=== PATIENT | female | born 1970 ===

== ENCOUNTER 2018-03-05 06:12 | Day surgery (SDC) | payer MEDICARE ==
[2018-03-03 11:38] VITALS: BMI 36.6
[2018-03-05 07:02] VITALS: TEMP 97.9
[2018-03-05 07:02] LABS: BASO # 0.1 K/uL (0.0-0.2); BASO % 0.7 % (0.0-2.0); EOS # 0.5 K/uL (0.0-0.7); EOS % 3.5 % (0.0-4.0); HEMOGLOBIN 13.4 g/dL (11.0-16.0); LYMPH # 4.3 K/uL (1.0-4.3); LYMPH % 32.8 % (20.0-40.0); MEAN CELL VOLUME 87.4 fL (81.0-99.0); MEAN CORPUSCULAR HEMOGLOBIN 29.5 pg (27.0-31.0); MEAN CORPUSCULAR HGB CONC 33.8 g/dL (33.0-37.0); MEAN PLATELET VOLUME 7.7 fL (7.2-11.7); MONO # 1.1 K/uL (0.0-0.8); NEUT # 7.3 K/uL (1.8-7.0); RBC 4.55 Mil/uL (3.80-5.20); RED CELL DISTRIBUTION WIDTH 13.7 % (11.5-14.5); WHITE BLOOD COUNT 13.2 K/uL (4.8-10.8)
[2018-03-05] MEDS ORDERED: Propofol 10 mg/ml Inj (20 ML) ONE (08:03)
[2018-03-05] MEDS ORDERED: Midazolam 2 MG/2 ML VIAL ONE (08:03)
[2018-03-05] MEDS ORDERED: HYDROmorphone 0.5 mg/0.5 ml ISec IVP PRN (08:26)
[2018-03-05] MEDS ORDERED: Silver Nitrate Topical - Stick ONE (08:37)
--- NOTE | 2018-03-05 08:47 | PCM.SURG1 ---
Surgeon's Initial Post Op Note - Surgeon's Notes Surgeon: Tiffanie morris MD Septic Tank Service Technician: none Type of Anesthesia: General LMA Pre-Operative Diagnosis: Abnormal uterine bleeding Operative Findings: 12 week sizes anterverted uteurs, friable tissue on cervix, submcuoal moma 2cm along left lateral wall removed wth myosure vn2iodm, thick white endometrium inside cavity, bilatera l ostia visluzed Post-Operative Diagnosis: same as above Operation Performed: Hysteroscopic myomectomy, dilation and currettage Specimen/Specimens Removed: submucosal myoma, endocervical curretting, endometiral currettings Estimated Blood Loss: EBL {In ML}: 5 Blood Products Given: N/A Drains Used: No Drains Post-Op Condition: Good Date of Surgery/Procedure: 03/05/18 Time of Surgery/Procedure: 08:30
[2018-03-05 10:29] VITALS: O2SAT 100
[2018-03-05 11:57] VITALS: BP 120/69; PULSE 67; RESP 18
--- NOTE | 2018-03-05 21:00 | OP ---
Copied To: Tiffanie Villatoro MD Attending MD: Tiffanie Villatoro MD PROCEDURE DATE: 03/05/2018 SURGEON: Tiffanie Villatoro MD ASSET PROTECTION SPECIALIST: None. TYPE OF ANESTHESIA: General LMA. PREOPERATIVE DIAGNOSIS: Abnormal uterine bleeding. OPERATIVE FINDINGS: 12 weeks' size anteverted uterus, friable tissue on cervix, submucosal myoma 2 cm along the left lateral wall removed with MyoSure device. Thick white endometrium noted inside the cavity. Bilateral ostia visualized. POSTOPERATIVE DIAGNOSES: Abnormal uterine bleeding, submucosal myoma. OPERATIONS PERFORMED: Hysteroscopic myomectomy, dilatation and curettage. SPECIMEN REMOVED: Submucosal myoma, endocervical curettings, and endometrial curettings. ESTIMATED BLOOD LOSS: 5 mL. BLOOD PRODUCTS: None. COMPLICATIONS: None. DESCRIPTION OF PROCEDURE: Patient was taken to the operating room where she was given general anesthesia. Once it was found to be adequate, she was placed on the operating table in dorsal supine position with legs supported using stirrups. The patient was then prepped and draped in usual sterile fashion. A time-out confirmed correct patient and correct procedure. Bimanual exam was performed with the above mentioned findings. Following this, a Bear retractor was placed on the anterior and posterior fornix of the vagina. The cervix was adequately visualized. A single-tooth tenaculum was placed on the anterior lip of the cervix. Endocervical curetting was obtained with the Karen curette, sent to Pathology on [facility]. Following this, the uterus was then sounded to 8 cm. Following this, the cervix was sequentially dilated allowing for introduction of 5 mm hysteroscope under direction visualization using normal saline as the distention media. Hysteroscope revealed bilateral ostia. A submucosal mass noted along the left lateral wall. MyoSure device was then inserted. The myoma was then carefully resected. The MyoSure device then removed. A gentle curettage was done. The specimen sent to Pathology and labelled as endometrial curettings. All instruments were removed. There was good hemostasis at the tenaculum puncture site. At the end of the procedure, all needle, sponge, and instrument counts were noted and correct x2. The patient tolerated the procedure well and was transferred to the recovery room in stable condition. Tiffanie Villatoro MD [facility] # [id number]
== END 2018-03-05 11:30 | disposition home or self-care (01) ==
LOC: C.SDS 06:12
PROVIDERS: ATTEND Obstetrics & Gynecology
DX: N93.9 Abnormal uterine and vaginal bleeding, unspecified (principal)
CPT/HCPCS: 36415; 58561; 85025; 88305; J2250; J2704; J3010

== ENCOUNTER 2018-05-14 06:02 | Inpatient (IN) | payer MEDICARE, OTHER ==
[2018-04-13 21:59] VITALS: BMI 26.7
[2018-05-14] MEDS ORDERED: ceFAZolin 1 gm in NS 2 GM/200 ML BAG IVPB ONE (07:49)
[2018-05-14] MEDS ORDERED: Bupivacaine HCl 0.25% PF (10 ml) Inj ONE (07:49)
[2018-05-14] MEDS ORDERED: Lidocaine/Epinephrine 1% 1:100000 10 ML IJ ONE (07:50)
[2018-05-14] MEDS ORDERED: Bupivacaine-Epi 0.5%-1:200,000 PF Inj IJ ONE (07:59)
[2018-05-14] MEDS ORDERED: Morphine 4 MG/ML VIAL ONE (08:27)
[2018-05-14] MEDS ORDERED: Midazolam 2 MG/2 ML VIAL ONE (08:28)
[2018-05-14] MEDS ORDERED: Succinylcholine Chloride 20 mg/ml Syr (5 ml) IV ONE (08:28)
[2018-05-14] MEDS ORDERED: Propofol 10 mg/ml Inj (20 ML) ONE (08:28)
[2018-05-14] MEDS ORDERED: Rocuronium 10 mg/ml (5 ml) ONE (08:28)
[2018-05-14] MEDS ORDERED: Albuterol HFA 90 mcg/actuation (8 g) ONE (08:39)
[2018-05-14] MEDS ORDERED: Phenylephrine 10 mg/ml Inj ONE (10:35)
[2018-05-14] MEDS ORDERED: Oxycodone/Acetaminophen 5/325 mg Tab PO PRN ×2 (11:13)
[2018-05-14] MEDS ORDERED: Neostigmine Methylsulfate 3mg/3ml Syringe IV ONE (11:14)
[2018-05-14] MEDS ORDERED: Sodium Chloride 0.9% 1,000 ML IV SCH (11:15)
[2018-05-14] MEDS ORDERED: HYDROmorphone 0.5 mg/0.5 ml ISec IVP PRN (11:17)
[2018-05-14] MEDS ORDERED: Acetaminophen IV 1,000 MG in Premixed IV 1 EA IV ONE ×2 (11:18→13:00)
[2018-05-14] MEDS ORDERED: ceFAZolin 2 GM in Sodium Chloride 0.9% 100 ML IVPB SCH (15:00)
[2018-05-14] MEDS: Simethicone 80 mg Chewtab PO SCH ×2 (17:16→20:56)
[2018-05-14] MEDS: ceFAZolin 2 GM in Sodium Chloride 0.9% 100 ML IVPB SCH (17:17)
[2018-05-15] MEDS: ceFAZolin 2 GM in Sodium Chloride 0.9% 100 ML IVPB SCH ×2 (01:20→08:04)
[2018-05-15] MEDS: Simethicone 80 mg Chewtab PO SCH ×4 (04:08→21:29)
[2018-05-15] MEDS: Albuterol 0.083% Inhal Sol (2.5 mg/3 mL) UD INH PRN ×2 (08:52→08:55)
--- NOTE | 2018-05-15 16:01 | CP.PCM.PN ---
Subjective - Date & Time of Evaluation Date of Evaluation: 05/15/18 Time of Evaluation: 15:00 - Subjective Subjective: pt seen adn exmajo sutton over iicnicon no novnause vomtng not passing fluts. no fever chills Objective - Vital Signs/Intake and Output Vital Signs (last 24 hours): Temp Pulse Resp BP Pulse Ox 98.3 F 89 20 108/69 96 05/14/18 19:15 05/14/18 19:15 05/14/18 19:15 05/14/18 19:15 05/14/18 19:15 Intake and Output: 05/15/18 05/15/18 06:59 18:59 Intake Total 1425 1860 Output Total 1625 450 Balance -200 1410 - Medications Medications: Current Medications Albuterol Sulfate (Albuterol 0.083% Inhal Argelia (2.5 Mg/3 Ml) Ud) 2.5 mg INH RQ6 PRN PRN Reason: Shortness of Breath Last Admin: 05/15/18 08:55 Dose: 2.5 mg Hydrocortisone Sodium Succinate (Solu-Cortef) 100 mg IV Q8H [facility] Stop: 05/15/18 16:01 Last Admin: 05/15/18 15:25 Dose: 100 mg Sodium Chloride (Sodium Chloride 0.9%) 1,000 mls @ 125 mls/hr IV .Q8H [facility]G Ondansetron HCl (Zofran Inj) 4 mg IVP ONCE PRN PRN Reason: Nausea/Vomiting Oxycodone/Acetaminophen (Percocet 5/325 Mg Tab) 1 tab PO Q4 PRN PRN Reason: Pain, moderate (4-7) Stop: 05/17/18 11:14 Oxycodone/Acetaminophen (Percocet 5/325 Mg Tab) 2 tab PO Q4 PRN PRN Reason: Pain, severe (8-10) Stop: 05/17/18 12:01 Last Admin: 05/15/18 07:47 Dose: 2 tab Simethicone (Mylicon Chew Tab) 80 mg PO Q6H DOUG Last Admin: 05/15/18 15:25 Dose: 80 mg - Constitutional Appears: Well, Non-toxic - Head Exam Head Exam: ATRAUMATIC, NORMAL INSPECTION - Eye Exam Eye Exam: EOMI Pupil Exam: NORMAL ACCOMODATION - ENT Exam ENT Exam: Mucous Membranes Moist - Respiratory Exam Respiratory Exam: Clear to Ausculation Bilateral, NORMAL BREATHING PATTERN - Cardiovascular Exam Cardiovascular Exam: REGULAR RHYTHM, +S1, +S2 - GI/Abdominal Exam GI & Abdominal Exam: Soft, Tenderness, Normal Bowel Sounds Additional comments: TTP onver inciocn, no guiarnd no rebudn tdnere nor igidty, incion c/d/i\ no vaiganl bleeidng - Extremities Exam Extremities Exam: Full ROM, Normal Capillary Refill, Normal Inspection - Back Exam Back Exam: Full ROM, NORMAL INSPECTION - Neurological Exam Neurological Exam: CN II-XII Intact, Normal Gait, Oriented x3 Assessment and Plan (1) S/P hysterectomy with oophorectomy Assessment & Plan: s/p TRH BSO with post oppain adn COPD -pain megnat -regular diet -icnentive spiron -boewl reigmen -will reeivwate -stress does steriods --> po tapers -kathrine prn Status: Acute
[2018-05-15 19:54] VITALS: RESP 18
[2018-05-16] MEDS: Simethicone 80 mg Chewtab PO SCH (02:44)
[2018-05-16 08:33] VITALS: BP 141/81; PULSE 78; TEMP 97.8; O2SAT 97
--- NOTE | 2018-05-17 06:53 | OP ---
PROCEDURE DATE: 05/14/2018 PREOPERATIVE DIAGNOSES: Abnormal uterine bleeding, symptomatic fibroid uterus, bladder pain, chronic pelvic pain, dyspareunia. POSTOPERATIVE DIAGNOSES: Abnormal uterine bleeding, symptomatic fibroid uterus, bladder pain, chronic pelvic pain, dyspareunia. PROCEDURES PERFORMED: Total robotic hysterectomy greater than 250 g, bilateral salpingo-oophorectomy, cystoscopy with bilateral ureteral catheterization, stent placement with IC-green. Please see separate operative note by Dr. Santos Urban for bilateral ureterolysis. SURGICAL ASSISTANTS: ALMA ROSA Peter and Santos Urban MD ESTIMATED BLOOD LOSS: 20 mL. URINE OUTPUT: 300 mL. OPERATIVE FINDINGS: Enlarged uterus, normal-appearing tubes and ovaries bilaterally with lysis noted with pelvic adhesions noted from the tubes and ovaries to the bilateral side wall. Please refer to separate operative note of Dr. Urban. SPECIMENS SENT TO PATHOLOGY: Uterus, cervix, tubes, and ovaries, cystoscopy with bilateral ureteral jet, stent placement and then also post-procedure bilateral ureteral jet . DESCRIPTION OF OPERATION: The patient was taken to the operating room where she was given general anesthesia. Once it was found adequate, she was placed on the operating table in the dorsal supine position with legs supported using stirrups. The patient was prepped and draped in the usual sterile fashion. A time-out confirmed correct patient and correct procedure. Bimanual exam was performed with the above-mentioned findings. Cystoscopy was performed, bilateral ureteral jet were noted. Bilateral ureteral catheterization was then placed with IC-green. The cystoscope was then removed. A Phillips catheter was then inserted. Attention was then turned to the abdomen. The surgeon then re-gloved. Supraumbilical skin incision was made after 0.25% Marcaine was administered at approximately 8 mm. The skin was then tented up. Veress needle was then inserted and confirmation was placed with the double click and passing of the normal saline. Drop test following this, the gas was then insufflated with a normal open pressure to 50 mmHg. The Veress needle was then removed. The skin was then tented up with two towel clamps. Following this, the laparoscope was then inserted under direct visualization. Prior to this after the cystoscopy and the bladder stent placement, HUMI uterine manipulator was then inserted into the cervix after it was found to help for placement and uterine manipulation. Following introduction of the laparoscope, two additional ports were placed in the right and left lower quadrant at approximately 8 mm under direct visualization after giving a 0.25% Marcaine, a 12-mm trocar was inserted as the accessory port in the left upper quadrant under direct visualization making sure there is no vessels. Following this, the robot was then docked in the appropriate manner. The surgeon then had un-gowned and went to the . The bipolar device was then used to help retract the round ligament, which was cauterized and cut. The IP ligament was identified after identifying the ureter using the IC-green feature with a laparoscopic camera. The IP ligament was then cauterized and cut in a similar line of the round ligament. There was adhesions noted, which were carefully lysed along the pelvic side wall. Similar procedure was done on the opposite side. Anterior portion of the was then inserted and the bladder flap was created. Bladder was then tented up with the accessory port. Following this, the uterine arteries were then carefully skeletonized. The uterine arteries were cauterized and then cut the cardinal ligaments and then cauterized and cut. Following this, colpotomy was then performed until the anterior to posteriorly. The specimen had been detached and removed through the vagina in addition with the tubes and ovaries. Very good hemostasis noted. Please refer separate operative note from Dr. Urban for bilateral ureterolysis. The vaginal cuff was then closed with two sutures using a 2-0 Vicryl V-Loc in a continuous manner. There was good hemostasis noted. All instruments were removed. Cystoscopy was then reperformed and there was no features noted within the bladder with bilateral ureteral jet. All instruments removed. After the closure of the 12-mm port using the EndoClose device, the fascia was reapproximated and closed. The skin was reapproximated with 4-0 Monocryl. At the end of the procedure, all needle, sponge, and instrument counts were noted and correct x2. The patient tolerated the procedure well and was transferred to the recovery room in stable condition. Tiffanie Villatoro MD [facility] # [id number]
--- NOTE | 2018-05-24 11:47 | OP ---
PROCEDURE DATE: 05/14/2018 SURGEON: Santos Urban MD PIT CLERK: Tiffanie Villatoro MD PREOPERATIVE DIAGNOSES: Abnormal uterine bleeding, pelvic pain, and pelvic adhesions. POSTOPERATIVE DIAGNOSES: Abnormal uterine bleeding, pelvic pain, and pelvic adhesions. PROCEDURE PERFORMED: Bilateral ureterolysis, robotic. COMPLICATIONS: None. ESTIMATED BLOOD LOSS: Minimal. INDICATIONS FOR THE PROCEDURE: I was called in to assist Dr. Villatoro who has performed a complex hysterectomy. Dr. Villatoro already performed a cystoscopy and injected both ureters, utilizing IC-Green and she is assisting on my dissection. DESCRIPTION OF PROCEDURE: After taking control of the jena, I identified ureters bilaterally. There were some adhesions involved. Both left and right ureters were progressively dissected and freed of adhesions and so that Dr. Villatoro would be able to elevate the ovaries and proceed with her hysterectomy. The integrity of ureter was verified, and there was no bleeding, and so I had that counseled back to Dr. Villatoro who completed the procedure. Santos Urban MD MTDD
== END 2018-05-16 08:34 | disposition home or self-care (01) | DRG 743 ==
LOC: C.SDS 06:02 → C.4M 11:11
PROVIDERS: ADMIT Obstetrics & Gynecology; ATTEND Obstetrics & Gynecology
PROC: 0UT24ZZ Resection of Bilateral Ovaries, Percutaneous Endoscopic Approach (ICD-10-PCS; 2018-05-14)
PROC: 0T788DZ Dilation of Bilateral Ureters with Intraluminal Device, Via Natural or Artificial Opening Endoscopic (ICD-10-PCS; 2018-05-14)
PROC: 8E0W4CZ Robotic Assisted Procedure of Trunk Region, Percutaneous Endoscopic Approach (ICD-10-PCS; 2018-05-14)
PROC: 0TN74ZZ Release Left Ureter, Percutaneous Endoscopic Approach (ICD-10-PCS; 2018-05-14)
PROC: 0TN64ZZ Release Right Ureter, Percutaneous Endoscopic Approach (ICD-10-PCS; 2018-05-14)
PROC: 0UT94ZZ Resection of Uterus, Percutaneous Endoscopic Approach (ICD-10-PCS; principal; 2018-05-14 07:45)
PROC: 0UT74ZZ Resection of Bilateral Fallopian Tubes, Percutaneous Endoscopic Approach (ICD-10-PCS; 2018-05-14 07:45)
DX: D25.9 Leiomyoma of uterus, unspecified (principal); N93.9 Abnormal uterine and vaginal bleeding, unspecified; N94.10 Unspecified dyspareunia; N28.89 Other specified disorders of kidney and ureter; N73.6 Female pelvic peritoneal adhesions (postinfective); N83.292 Other ovarian cyst, left side; N88.8 Other specified noninflammatory disorders of cervix uteri; N80.0 Endometriosis of uterus; G89.29 Other chronic pain; J44.9 Chronic obstructive pulmonary disease, unspecified

== ENCOUNTER 2018-07-08 06:11 | Inpatient (IN) | payer MEDICARE, OTHER ==
[2018-07-01 09:08] VITALS: BMI 36.1
[2018-07-08] MEDS ORDERED: Lactated Ringer's 1,000 ML IV ONE ×3 (07:15→12:00)
[2018-07-08] MEDS ORDERED: Dexamethasone 4 mg/1 ml IVPB ONE (08:15)
[2018-07-08] MEDS ORDERED: ceFAZolin IV 2 gm in Dextrose 1 GM/50 ML BAG IVPB ONE (08:15)
[2018-07-08] MEDS ORDERED: Midazolam 2 MG/2 ML VIAL ONE (09:41)
[2018-07-08] MEDS ORDERED: Propofol 10 mg/ml Inj (20 ML) ONE (09:41)
[2018-07-08] MEDS ORDERED: Bupivacaine 0.25% 20 ML INJ IJ ONE ×3 (09:49→10:49)
[2018-07-08] MEDS ORDERED: Bupivacaine HCl 0.5% PF (30 ml) Inj ONE (09:49)
[2018-07-08] MEDS ORDERED: Rocuronium 10 mg/ml (5 ml) ONE (10:27)
[2018-07-08] MEDS ORDERED: Neostigmine Methylsulfate 3mg/3ml Syringe IV ONE (10:27)
--- NOTE | 2018-07-08 11:06 | PCM.SURG1 ---
Surgeon's Initial Post Op Note - Surgeon's Notes Surgeon: Dr. Ashley Community Educator: Dr. Alvarez, Dr. Grullon Type of Anesthesia: General Endo Pre-Operative Diagnosis: morbid obesity Operative Findings: No hiatal hernia Post-Operative Diagnosis: same Operation Performed: Laparoscopic sleeve gastrectomy, TAP block, upper endoscopy Specimen/Specimens Removed: partial gastrectomy Estimated Blood Loss: EBL {In ML}: 10 Blood Products Given: N/A Drains Used: No Drains Post-Op Condition: Good Date of Surgery/Procedure: 07/08/18 Time of Surgery/Procedure: 11:06
[2018-07-08] MEDS: Bupivacaine 0.25% 20 ML INJ IJ ONE ×2 (11:19→11:29)
[2018-07-08] MEDS ORDERED: HYDROmorphone 1 mg/ml ISec IVP PRN (11:26)
[2018-07-08] MEDS ORDERED: HYDROmorphone 0.5 mg/0.5 ml ISec IVP PRN (11:27)
[2018-07-08] MEDS ORDERED: Labetalol 25mg/5ml Syringe IVP PRN (11:48)
--- NOTE | 2018-07-08 17:04 | CP.PCM.CON ---
History of Present Illness - History of Present Illness History of Present Illness: Reason for Consultation: COPD, TAWANDA. S/p Lap Sleeve Gastrectomy Patient is a 47 y/o female who is s/p lap sleeve gastrectomy and has a PMHx of COPD and TAWANDA. Per surgery, patient had a successful procedure and is stable. Vital signs are stable post op. Will continue to monitor patient while in hospital. PMHx: COPD, TAWANDA PSHx: Lap Sleeve Gastrectomy (06/2018), Social Hx: Denies tobacco use, alcohol use, and illicit drug use. Family Hx: Noncontributory Allergies: NKDA Medications: At home: Brovana inhaled twice a day. Duoneb every 6 hours prn, Lovenox 30 mg daily, Protonix 40 mg daily, Pulmicort inhaled twice a day, Solu-medrol 60 mg every 6 hours, Spiriva inhaled daily Past Patient History - Infectious Disease Hx of Infectious Diseases: None - Tetanus Immunizations Tetanus Immunization: Unknown - Past Medical History & Family History Past Medical History?: Yes - Past Social History Smoking Status: Never Smoked - CARDIAC Hx Cardiac Disorders: Yes Hx Angina: Yes (CHEST PAIN NOT CARDIAC RELATED COPD RELATED ) Hx Peripheral Edema: Yes (LEFT ANKLE DUE TO PAST TORN LIGAMENTS) - PULMONARY Hx Respiratory Disorders: Yes Hx Asthma: Yes Hx Bronchitis: Yes Hx Chronic Obstructive Pulmonary Disease (COPD): Yes Hx Pneumonia: Yes (LAST MAY 2018) Other/Comment: patient states just in hospital 02/27/18 for sob.discharged 03/02/18 - NEUROLOGICAL Hx Neurological Disorder: No - HEENT Hx HEENT Problems: No - RENAL Hx Chronic Kidney Disease: No - ENDOCRINE/METABOLIC Hx Endocrine Disorders: No - HEMATOLOGICAL/ONCOLOGICAL Hx Blood Disorders: No - INTEGUMENTARY Hx Dermatological Problems: No - MUSCULOSKELETAL/RHEUMATOLOGICAL Hx Musculoskeletal Disorders: Yes Hx Back Pain: Yes Hx Herniated Disk: Yes (MEDIAL AND LUMBAR) Other/Comment: TORN LIGAMENTS LEFT ANKLE - GASTROINTESTINAL Hx Gastrointestinal Disorders: No - GENITOURINARY/GYNECOLOGICAL Hx Genitourinary Disorders: Yes (ABN VAG BLEEDING) Hx Reproductive Disorders: Yes Other/Comment: HX: ABNORMAL UTERINE BLEEDING - PSYCHIATRIC Hx Psychophysiologic Disorder: No Hx Substance Use: No - SURGICAL HISTORY Hx Surgeries: Yes Hx Dilation and Curettage: Yes Hx Hysterectomy: Yes Other/Comment: lipo suction - ANESTHESIA Hx Anesthesia: Yes Hx Anesthesia Reactions: No Hx Malignant Hyperthermia: No Has any member of the family had a problem w/ anesthesia?: No Meds Allergies/Adverse Reactions: Allergies Allergy/AdvReac Type Severity Reaction Status Date / Time azithromycin Allergy Severe "BLOWS UP Verified 07/01/18 09:08 MY ARMS" esomeprazole [From Nexium] Allergy Severe "FEELING Verified 07/01/18 09:08 OF LEGS BEING PULLED OFF MY BODY" - Medications Medications: Current Medications Enoxaparin Sodium (Lovenox) 40 mg SC DAILY [facility] Famotidine (Pepcid) 20 mg IVP Q12 [facility] Heparin Sodium (Porcine) (Heparin) 5,000 units SC ONCE ONE Stop: 07/08/18 18:01 Hydromorphone HCl (Dilaudid) 1 mg IVP Q2H PRN PRN Reason: Pain, moderate (4-7) Lactated Ringer's (Lactated Ringer's) 1,000 mls @ 150 mls/hr IV .Q6H40M [facility] Ketorolac Tromethamine (Toradol) 30 mg IVP Q6 [facility] Stop: 07/10/18 06:01 Last Admin: 07/08/18 12:00 Dose: 30 mg Labetalol HCl (Trandate) 10 mg IVP Q5MIN PRN PRN Reason: Systolic Blood Pressure Last Admin: 07/08/18 12:14 Dose: 10 mg Metoclopramide HCl (Reglan) 10 mg IVP Q6H PRN PRN Reason: Nausea/Vomiting Ondansetron HCl (Zofran Inj) 4 mg IVP Q4H PRN PRN Reason: Nausea/Vomiting Physical Exam - Head Exam Head Exam: ATRAUMATIC, NORMOCEPHALIC - Neck Exam Neck exam: Positive for: Normal Inspection - Respiratory Exam Respiratory Exam: Clear to Auscultation Bilateral - Cardiovascular Exam Cardiovascular Exam: REGULAR RHYTHM Results - Vital Signs Recent Vital Signs: Last Vital Signs Temp 97.3 F L 07/08/18 11:25 Pulse 78 07/08/18 14:45 Resp 14 07/08/18 14:45 BP 123/67 07/08/18 14:45 Pulse Ox 100 07/08/18 14:45 - Labs Labs: Laboratory Results - last 24 hr 07/08/18 07:21 POC Glucose (mg/dL) 189 H Assessment & Plan (1) TAWANDA and COPD overlap syndrome Status: Acute Comment: continue CPAP. Duo neb Nebulizer treatment. budesonide twice daily
[2018-07-08 19:25] VITALS: RESP 20
[2018-07-08] MEDS ORDERED: Budesonide 0.5 mg/2 ml Inhal Susp UD INH SCH (20:00)
[2018-07-08] MEDS ORDERED: Albuterol-Ipratrop 3 mg / 0.5 (3 ml) UD INH SCH (20:00)
[2018-07-08] MEDS: Lactated Ringer's 1,000 ML IV SCH (21:31)
[2018-07-09] MEDS: Albuterol-Ipratrop 3 mg / 0.5 (3 ml) UD INH SCH ×3 (02:33→13:32)
--- NOTE | 2018-07-09 02:55 | OP ---
PROCEDURE DATE: 07/08/2018 PREOPERATIVE DIAGNOSIS: Morbid obesity. POSTOPERATIVE DIAGNOSIS: Morbid obesity. PROCEDURE: Laparoscopic sleeve gastrectomy, TAP block, upper endoscopy. SURGEON: Charles Ashley MD OWNER CONSULTING ENGINEER: Dimitri Alvarez MD. ANESTHESIA: General. ESTIMATED BLOOD LOSS: Approximately 10 mL. COMPLICATIONS: None. SPECIMEN: Partial gastrectomy. INDICATION: This is a 48-year-old female with a history of morbid obesity who meets the NIH criteria for bariatric surgery. PROCEDURE: The patient was brought to the operating room and placed in supine position on the operating room table. General endotracheal anesthesia was induced by the anesthesia team. A Phillips catheter was inserted to decompress the bladder. Precautions were taken to pad the patient well using gel padding in the back, feet, and arms to prevent postoperative pain. The patient was prepped and draped in the usual sterile fashion. The employment legal assistant placed a Veress needle in the left upper quadrant below the costal margin to establish pneumoperitoneum to 15 mmHg. A 12-mm Optiview port along with 0-degree laparoscope was inserted in the midline, superior to the umbilicus with no evidence of injury upon entering. Next, the scope was changed to 45 degree and the Veress needle was removed under vision. Under laparoscopic guidance, a transversus abdominis plane block was performed by injecting 30 cc of 0.25% Marcaine into multiple sites along the left flank. The solution was injected into the plane between the internal oblique and the transversus abdominis muscles to aid in postoperative analgesia. This procedure was repeated on the right flank for maximum efficacy. A 15-mm trocar was placed in the right midclavicular line above the umbilicus. Additionally, two 5-mm trocars were placed in the right and left flank below the costal margin. All trocars were placed under direct vision. A liver retractor (Kirby) was inserted through a separate stab incision 1 cm below the xiphoid process and was attached to a retracting device secured to the left side of the table. The entire procedure was performed laparoscopically. The primary surgeon operated from the right side of the patient and the employment legal assistant operated from the left side of the patient. The lesser sac was entered by first dividing the gastrocolic ligament along the midpoint of the greater curvature of the stomach with a harmonic scalpel. The dissection was performed close to the stomach to avoid the gastroepiploic artery. Dissection proceeded proximally toward the angle of His. The employment legal assistant dissected out and ligated the short gastric arteries with the harmonic scalpel. Care was taken to avoid injury to the spleen. We then returned to the point, where the dissection began more distally on the greater curvature. The employment legal assistant used the Harmonic scalpel and continued distally along the greater curvature to approximately 4 to 6 cm from the pylorus. At this point, a 40-Persian bougie was inserted by the anesthesia team and was aligned medially and passed under vision to the region of the pylorus. The employment legal assistant grasped the greater curvature of the stomach with a loop grasper and retracted laterally. The sleeve gastrectomy was performed using sequential firings of a 60-mm Endo HOLLEY stapler ([employer]). For the initial two firings, a green load was used where the stomach tissue was thicker. The remaining firings were done using gold and blue loads. Care was taken to avoid narrowing the distal aspect of the sleeve. The anterior and posterior vagus nerves were identified and preserved throughout their course. Sequential firings of the stapler continued up to the angle of His. Care was taken to ensure equal tension along the entire staple line to prevent kinking of the sleeve. The entire staple line was reinforced with SeamGuard buttressing material to help reduce the chance of bleeding or a leak. An upper endoscopy was performed (to be dictated separately) in order to evaluate the gastric mucosa as well as perform a leak test. The distal stomach was occluded and the upper abdomen was filled with saline solution in order to submerge the entire staple line. Air was insufflated and no bubbles were visualized. The saline was suctioned off and the scope removed. The resected stomach was placed in a large EndoCatch bag for later removal. The area was carefully inspected and hemostasis ensured. The fascia of the 15-mm port site was closed using 0 Vicryl interrupted suture on the Endoclose device. The liver retractor and all ports were removed under vision and pneumoperitoneum evacuated. The specimen was removed through the 15-mm port site and was sent off the field. The skin on all port sites was closed with 4-0 Monocryl subcuticular sutures followed by Dermabond for dressing. All sponge and instruments counts were correct at the end of the procedure. The patient tolerated the procedure well, was extubated in the operating room and was transferred to the recovery room in stable condition. Charles Ashley MD
--- NOTE | 2018-07-09 03:27 | OP ---
PROCEDURE DATE: 07/08/2018 PREOPERATIVE DIAGNOSIS: Morbid obesity. POSTOPERATIVE DIAGNOSIS: Morbid obesity. PRIMARY SURGEON: Dimitri Alvarez MD ANESTHESIA: General. COMPLICATIONS: None. OPERATIVE PROCEDURE: Upper endoscopy. INDICATIONS: This is a 48-year-old male undergoing a laparoscopic sleeve gastrectomy. PROCEDURE: An Olympus upper endoscope was inserted into the oropharynx and passed bluntly through the hypopharynx, into the proximal esophagus. Insufflation was begun and the scope was passed under direct vision through the proximal, mid, and distal esophagus with care taken to look at a full 360 degrees of exposed mucosa. Beginning at the fundus, the gastric sleeve staple line was carefully examined and found to have no evidence of hemorrhage or intraluminal clot. All excess insufflated air was aspirated and the scope was withdrawn. The patient remained intubated in the operating room for completion of the operative procedure. Dimitri Alvarez MD
[2018-07-09] MEDS: Lactated Ringer's 1,000 ML IV SCH ×2 (03:49→04:30)
[2018-07-09 07:31] LABS: BASO # 0.1 K/uL (0.0-0.2); BASO % 0.5 % (0.0-2.0); EOS % 0.1 % (0.0-4.0); HEMOGLOBIN 12.9 g/dL (11.0-16.0); LYMPH # 2.9 K/uL (1.0-4.3); LYMPH % 20.9 % (20.0-40.0); MEAN CELL VOLUME 88.2 fL (81.0-99.0); MEAN CORPUSCULAR HEMOGLOBIN 29.5 pg (27.0-31.0); MEAN CORPUSCULAR HGB CONC 33.4 g/dL (33.0-37.0); MEAN PLATELET VOLUME 7.8 fL (7.2-11.7); MONO # 1.2 K/uL (0.0-0.8); MONO % 9.1 % (0.0-10.0); NEUT # 9.5 K/uL (1.8-7.0); NEUT % 69.4 % (50.0-75.0); RBC 4.37 Mil/uL (3.80-5.20); RED CELL DISTRIBUTION WIDTH 13.8 % (11.5-14.5)
[2018-07-09 07:32] LABS: WHITE BLOOD COUNT 13.7 K/uL (4.8-10.8)
[2018-07-09 08:03] VITALS: O2SAT 96
[2018-07-09] MEDS ORDERED: Barium Sulfate for Susp 96% w/w 176g Bottle PR ONE (08:12)
[2018-07-09] MEDS ORDERED: Iohexol 240 200 ML ONE (08:12)
[2018-07-09 08:20] LABS: BLOOD UREA NITROGEN 10 mg/dL (7-17); CALCIUM 9.2 mg/dl (8.6-10.4); GFR NON-AFRICAN AMERICAN > 60
[2018-07-09 08:34] VITALS: PULSE 80
[2018-07-09] MEDS ORDERED: Enoxaparin 40 mg Syringe SC SCH (10:00)
--- NOTE | 2018-07-09 12:31 | RAD ---
Date of service: 07/09/2018 PROCEDURE: Upper GI series. HISTORY: Status post gastric sleeve surgery COMPARISON: None available. TECHNIQUE: Fluoroscopic evaluation of the stomach was performed following administration of oral contrast. FINDINGS: Multiple surgical clips are seen along the greater curvature. There is normal tubular appearance of the stomach. The gastroesophageal junction is normal. There is smooth passage of contrast from the esophagus into the stomach and stomach into the duodenum and proximal small bowel. No evidence of extraluminal contrast to suggest postoperative leak. The total fluoroscopic time was 1.0 minutes. IMPRESSION: Status post gastric sleeve surgery, no evidence of postoperative leak.
--- NOTE | 2018-07-09 14:44 | CP.PCM.PN ---
Subjective - Date & Time of Evaluation Date of Evaluation: 07/09/18 Time of Evaluation: 14:00 - Subjective Subjective: Patient seen and examined at bedside, lying down comfortably. Afebrile and in no acute distress. 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 Continue present medication Will sign off Objective - Vital Signs/Intake and Output Vital Signs (last 24 hours): Temp Pulse Resp BP Pulse Ox 99.3 F 80 20 156/93 H 96 07/09/18 04:00 07/09/18 07:00 07/09/18 04:00 07/09/18 04:00 07/09/18 04:00 Intake and Output: 07/09/18 07/09/18 06:59 18:59 Intake Total 1400 Output Total 1830 Balance -430 - Medications Medications: Current Medications Albuterol/Ipratropium (Duoneb 3 Mg/0.5 Mg (3 Ml) Ud) 3 ml INH RQ6 [facility] Last Admin: 07/09/18 13:32 Dose: 3 ml Budesonide (Pulmicort Respules) 0.5 mg INH RQ12 [facility] Last Admin: 07/09/18 08:01 Dose: 0.5 mg Enoxaparin Sodium (Lovenox) 40 mg SC DAILY [facility] Last Admin: 07/09/18 10:52 Dose: 40 mg Famotidine (Pepcid) 20 mg IVP Q12 [facility] Last Admin: 07/09/18 10:53 Dose: 20 mg Hydromorphone HCl (Dilaudid) 1 mg IVP Q2H PRN PRN Reason: Pain, moderate (4-7) Lactated Ringer's (Lactated Ringer's) 1,000 mls @ 150 mls/hr IV .Q6H40M [facility] Last Admin: 07/09/18 04:30 Dose: Not Given Ketorolac Tromethamine (Toradol) 30 mg IVP Q6 [facility] Stop: 07/10/18 06:01 Last Admin: 07/09/18 08:17 Dose: 30 mg Metoclopramide HCl (Reglan) 10 mg IVP Q6H PRN PRN Reason: Nausea/Vomiting Last Admin: 07/08/18 20:00 Dose: 10 mg Ondansetron HCl (Zofran Inj) 4 mg IVP Q4H PRN PRN Reason: Nausea/Vomiting Last Admin: 07/09/18 06:50 Dose: 4 mg - Labs Labs: 07/09/18 07:21 07/09/18 07:21 Assessment and Plan (1) TAWANDA and COPD overlap syndrome Status: Acute
[2018-07-09 16:14] VITALS: BP 162/90; TEMP 98.7
--- NOTE | 2018-07-09 19:37 | CP.PCM.DIS ---
Provider - Provider Date of Admission: 07/08/18 06:11 Attending physician: Charles Ashley MD Consults: 07/08/18 11:35 Physician Consult Routine Comment: Consulting Provider: Antonia Michele Consulting Physician: Antonia Michele Reason for Consult: PMD mgmt s/p Gastrectomy. Pulm disease 07/08/18 11:42 Pulmonology Consult Routine Comment: Consulting Provider: Shahram Vora Consulting Physician: Shahram Vora Reason for Consult: COPD, TAWANDA. S/p Lap Sleeve Gastrectomy Time Spent in preparation of Discharge (in minutes): 45 Hospital Course - Lab Results Lab Results: Most Recent Lab Values WBC 13.7 K/uL (4.8-10.8) H D 07/09/18 07:21 RBC 4.37 Mil/uL (3.80-5.20) 07/09/18 07:21 Hgb 12.9 g/dL (11.0-16.0) 07/09/18 07:21 Hct 38.6 % (34.0-47.0) 07/09/18 07:21 MCV 88.2 fL (81.0-99.0) 07/09/18 07:21 MCH 29.5 pg (27.0-31.0) 07/09/18 07:21 MCHC 33.4 g/dL (33.0-37.0) 07/09/18 07:21 RDW 13.8 % (11.5-14.5) 07/09/18 07:21 Plt Count 336 K/uL (130-400) 07/09/18 07:21 MPV 7.8 fL (7.2-11.7) 07/09/18 07:21 Neut % (Auto) 69.4 % (50.0-75.0) 07/09/18 07:21 Lymph % (Auto) 20.9 % (20.0-40.0) 07/09/18 07:21 [place] % (Auto) 9.1 % (0.0-10.0) 07/09/18 07:21 Eos % (Auto) 0.1 % (0.0-4.0) 07/09/18 07:21 Baso % (Auto) 0.5 % (0.0-2.0) 07/09/18 07:21 Neut # (Auto) 9.5 K/uL (1.8-7.0) H 07/09/18 07:21 Lymph # (Auto) 2.9 K/uL (1.0-4.3) 07/09/18 07:21 [place] # (Auto) 1.2 K/uL (0.0-0.8) H 07/09/18 07:21 Eos # (Auto) 0.0 K/uL (0.0-0.7) 07/09/18 07:21 Baso # (Auto) 0.1 K/uL (0.0-0.2) 07/09/18 07:21 Sodium 134 mmol/L (132-148) 07/09/18 07:21 Potassium 3.8 mmol/L (3.6-5.2) 07/09/18 07:21 Chloride 98 mmol/L (98-107) 07/09/18 07:21 Carbon Dioxide 26 mmol/L (22-30) 07/09/18 07:21 Anion Gap 14 (10-20) 07/09/18 07:21 BUN 10 mg/dL (7-17) 07/09/18 07:21 Creatinine 0.7 mg/dL (0.7-1.2) 07/09/18 07:21 Est GFR ( Amer) > 60 07/09/18 07:21 Est GFR (Non-Af Amer) > 60 07/09/18 07:21 POC Glucose (mg/dL) 169 mg/dL (65-110) H 07/08/18 21:21 Random Glucose 148 mg/dL (65-105) H 07/09/18 07:21 Calcium 9.2 mg/dl (8.6-10.4) 07/09/18 07:21 - Hospital Course Hospital Course: 48yo F with Morbid Obesity, here for laparoscopic sleeve gastrectomy. POD 0, patient had some mild nausea and one episode of vomiting on trial of bariatric clears diet. Overnight, patient did well, pain well tolerated. She did not have any episodes of abdominal pain or tachycardia. POD 1, patient obtained a UGIS which was negative for any leak or obstruction. Patient was cleared for discharge upon tolerating 20oz of liquid. Discussed follow up plan with patient who understands and agrees with plan. Discharge Exam - Head Exam Head Exam: ATRAUMATIC, NORMAL INSPECTION, NORMOCEPHALIC - Eye Exam Eye Exam: EOMI, Normal appearance - ENT Exam ENT Exam: Mucous Membranes Moist - Respiratory Exam Respiratory Exam: NORMAL BREATHING PATTERN, UNREMARKABLE. absent: Accessory Muscle Use, Respiratory Distress - Cardiovascular Exam Cardiovascular Exam: absent: JVD - GI/Abdominal Exam GI & Abdominal Exam: Soft. absent: Distended, Firm, Guarding, Rebound, Rigid, Tenderness Additional comments: incisions clean, dry and intact. - Extremities Exam Extremities exam: calf tenderness, normal inspection - Neurological Exam Neurological exam: Alert, Oriented x3 - Skin Skin Exam: Dry, Intact, Normal Color, Warm Discharge Plan - Follow Up Plan Condition: GOOD Disposition: HOME/ ROUTINE Instructions: Vertical Sleeve Gastrectomy, Laparoscopic Surgery, Managing Pain After Surgery Additional Instructions: Follow up in one week Referrals: Charles Ashley MD [Staff Provider] -
--- NOTE | 2018-07-10 15:13 | PN ---
DATE: 07/09/2018 SUBJECTIVE: The patient is a 48-year-old female. The patient was seen and examined early in the morning at the bedside on 07/09/2018, complaining of little bit nauseousness and abdominal pain. There was no fever, no chills, no hematuria or hematochezia. No headache or dizziness. No chest pain or palpitations. PHYSICAL EXAMINATION: VITAL SIGNS: Temperature 98.7, pulse 80, blood pressure 162/90, and respiratory rate 20. HEENT: Head, normocephalic and atraumatic. Eyes, PERRLA. Extraocular muscles are intact. Conjunctivae clear. Nose, patent. Mucous membranes moist. NECK: Supple. No carotid bruits. No JVD or thyromegaly. CHEST: Bilaterally symmetrical. HEART: S1 and S2 positive. LUNGS: Clear to auscultation. ABDOMEN: Tender at the surgical site. EXTREMITIES: No edema. No cyanosis. NEUROLOGIC: The patient is awake and alert, moving all four extremities . No focal deficits. MEDICATIONS: Dilaudid, lactate, Lovenox, ____, Toradol, Zofran. LABORATORY DATA: Sodium 134, potassium 3.8, BUN 10, creatinine 0.7, glucose 148. White blood cells 13.4, hemoglobin 12.9, hematocrit 38.6, and platelets 336. ASSESSMENT AND PLAN: Ms. Donna Cuenca is a 48-year-old, my private patient, who has leukocytosis, very happy to go home today. We will repeat labs as outpatient. Hyperglycemia and hypertension, may be getting Ringer's lactate. Plan for vertical sleeve gastrectomy, laparoscopic surgery, managing the pain after surgery. She will go home today and follow up with surgeon in one week. History of chronic obstructive pulmonary disease, apnea, having a little bit of nauseousness, POD is 1, one episode of vomiting, getting clear diet. Overnight, the patient did very well. Pain tolerated. Surgery is on the case. Pulmonary is on the case. Continue present treatment. We will follow up. Antonia Michele MD
--- NOTE | 2018-07-10 21:31 | CON ---
DATE: 07/08/2018 The patient was seen and examined at the bedside on 07/08/2018. CHIEF COMPLAINT: Shortness of breath, COPD. HISTORY OF PRESENT ILLNESS: Ms. Donna Cuenca is a 48-year-old my private patient with history of multiple medical problems, especially COPD, asthma, came for laparoscopic sleeve gastrectomy, and has history of obstructive sleep apnea also, and the patient went through successful procedure,. I saw the patient in the recovery room, having a little bit abdominal pain. No fever. No chills. No hematuria or hematochezia. PAST MEDICAL HISTORY: COPD, obstructive sleep apnea, asthma, history of hysterectomy, abnormal menses. FAMILY HISTORY: Father and mother, noncontributory. HABITS: No smoking. No alcohol. No illicit drug abuse. ALLERGIES: THE PATIENT IS ALLERGIC TO AZITHROMYCIN AND ESOMEPRAZOLE. HOME MEDICATIONS: Brovana, DuoNeb, Protonix, Solu-Medrol, and Spiriva. REVIEW OF SYSTEMS: The patient was seen and examined at the bedside, looking comfortable. No fever. No chills. No hematuria or hematochezia. No headache or dizziness. Having abdominal pain at surgical site. PHYSICAL EXAMINATION: VITAL SIGNS: Temperature 97.3, pulse 70, respiratory rate 14, blood pressure 123/67. HEENT: Head: Normocephalic and atraumatic. Eyes: PERRLA. Extraocular muscles are intact. Conjunctivae clear. Nose patent. Mucous membrane moist. NECK: Supple. No carotid bruits, JVD, or thyromegaly. CHEST: Bilaterally symmetric. HEART: S1 and S2 positive. LUNGS: Clear to auscultation. ABDOMEN: Soft. Bowel sounds present. No organomegaly. EXTREMITIES: No edema. No cyanosis. NEUROLOGIC: The patient is awake and alert. Moving all four extremities. No focal deficit. MEDICATIONS: Lovenox, heparin, Dilaudid, lactated Ringer, labetalol, Reglan, Zofran. LABORATORY DATA: We do not have labs. Glucose is 189 and 169. ASSESSMENT AND PLAN: Ms. Donna Cuenca is a 48-year-old lady with a history of chronic obstructive pulmonary disease, asthma, steroid dependence, obstructive sleep apnea syndrome, status post laparoscopic sleeve gastrectomy, looks stable. Getting Brovana, DuoNeb, Lovenox, Protonix. Discussion done with the patient. Repeat labs. We will follow up. Antonia Michele MD
== END 2018-07-09 17:22 | disposition home or self-care (01) | DRG 620 ==
LOC: C.9S 06:11 → C.6T 19:08
PROVIDERS: ADMIT Surgery; ATTEND Surgery
PROC: 3E0T3BZ Introduction of Anesthetic Agent into Peripheral Nerves and Plexi, Percutaneous Approach (ICD-10-PCS; 2018-07-08)
PROC: 0DJ08ZZ Inspection of Upper Intestinal Tract, Via Natural or Artificial Opening Endoscopic (ICD-10-PCS; 2018-07-08)
PROC: 0DB64Z3 Excision of Stomach, Percutaneous Endoscopic Approach, Vertical (ICD-10-PCS; principal; 2018-07-08 09:15)
DX: E66.01 Morbid (severe) obesity due to excess calories (principal); G47.33 Obstructive sleep apnea (adult) (pediatric); M35.1 Other overlap syndromes; J44.9 Chronic obstructive pulmonary disease, unspecified; I10 Essential (primary) hypertension; R73.9 Hyperglycemia, unspecified; Z79.52 Long term (current) use of systemic steroids; Z87.01 Personal history of pneumonia (recurrent); Z90.710 Acquired absence of both cervix and uterus